=== PATIENT | female | born 1950 | race Caucasian/White ===

== ENCOUNTER → 2016-09-16 | Outpatient (CLI) | payer MEDICARE, OTHER | LOC: CT 09-13 08:30 | DX: M54.2 Cervicalgia (principal); M47.812 Spondylosis without myelopathy or radiculopathy, cervical region; Z98.1 Arthrodesis status | CPT/HCPCS: 72125 ==

== ENCOUNTER 2020-08-24 23:15 | Inpatient (IN) | payer MEDICARE ==
[~2020-08-24] VITALS: Ht 165.1 cm; Wt 97.5 kg
[~2020-08-24 23:15] MED LIST: AMIODARONE HCL200 MG PO; AMIODARONE HCL400 MG PO; ARIMIDEX 1 MG TA1 MG PO; ATORVASTATIN CA40 MG PO; CEFUROXIME250 MG PO; ENTRESTO 97 MG1 EACH PO; LIPITOR TAB 2020 MG PO; ONDANSETRON ODT8 MG PO; PLAVIX 75 MG TA75 MG PO; VERZENIO PO; VITAMIN D325 MC3 PO; ZEBETA 5 MG TAB5 MG PO
[2020-08-25 01:10] LABS: HEMOGLOBIN 11.4 gm/dl (12.3-15.3); RED BLOOD COUNT 3.54 M/UL (4.00-5.10); WHITE BLOOD COUNT 5.5 K/UL (4.5-11.0)
[2020-08-25] MEDS ORDERED: LETROZOLE2.5 MG PO (02:43)
[2020-08-26 12:11] LABS: HEMOGLOBIN 10.8 gm/dl (12.3-15.3); RED BLOOD COUNT 3.32 M/UL (4.00-5.10); WHITE BLOOD COUNT 5.2 K/UL (4.5-11.0)
[2020-08-27 02:56] LABS: HEMOGLOBIN 10.4 gm/dl (12.3-15.3); RED BLOOD COUNT 3.23 M/UL (4.00-5.10); WHITE BLOOD COUNT 4.6 K/UL (4.5-11.0)
[2020-08-28 04:11] LABS: HEMOGLOBIN 10.5 gm/dl (12.3-15.3); RED BLOOD COUNT 3.27 M/UL (4.00-5.10); WHITE BLOOD COUNT 4.8 K/UL (4.5-11.0)
[2020-10-28] MEDS ORDERED: OXYCODONE HCL15 MG PO (09:28)
== END 2020-08-28 10:05 | disposition home or self-care (01) | DRG 683 ==
LOC: ER1 23:15 → M/S 08-25 02:05 → CDU 08-25 02:05 → M/S 08-25 19:21
PROVIDERS: Physician Assistant; ADMIT Internal Medicine
DX: N17.9 Acute kidney failure, unspecified (principal); M62.82 Rhabdomyolysis; I13.0 Hypertensive heart and chronic kidney disease with heart failure and stage 1 through stage 4 chronic kidney disease, or unspecified chronic kidney disease; I50.22 Chronic systolic (congestive) heart failure; C79.51 Secondary malignant neoplasm of bone; I42.8 Other cardiomyopathies; Z20.822 Contact with and (suspected) exposure to COVID-19; N18.30 Chronic kidney disease, stage 3 unspecified; E86.0 Dehydration; C50.919 Malignant neoplasm of unspecified site of unspecified female breast; E66.9 Obesity, unspecified; E83.52 Hypercalcemia; D63.1 Anemia in chronic kidney disease; I44.7 Left bundle-branch block, unspecified; E78.5 Hyperlipidemia, unspecified; K21.9 Gastro-esophageal reflux disease without esophagitis; E03.9 Hypothyroidism, unspecified; F11.90 Opioid use, unspecified, uncomplicated; Z68.30 Body mass index [BMI] 30.0-30.9, adult; Z90.49 Acquired absence of other specified parts of digestive tract; Z90.710 Acquired absence of both cervix and uterus; Z88.5 Allergy status to narcotic agent; Z91.041 Radiographic dye allergy status
CPT/HCPCS: 36415; 71045; 80048; 80053; 81001; 82550; 82553; 84484; 85025; 87086; 93005; 96374; 99285; J1170; J1650; J2270; J2405; J7030; J7040; U0002

== ENCOUNTER 2020-09-30 22:10 | Inpatient (IN) | payer MEDICARE ==
[~2020-09-30] VITALS: Ht 165.1 cm; Wt 98.9 kg
[~2020-09-30 22:10] MED LIST changes: +LETROZOLE2.5 MG PO
[2020-10-01] MEDS ORDERED: LIPITOR TAB 2020 MG PO (09:24)
[2020-10-01] MEDS ORDERED: ZOFRAN ODT 4 MG4 MG PO (09:24)
[2020-10-01 10:22] LABS: HEMOGLOBIN 10.2 gm/dl (12.3-15.3); RED BLOOD COUNT 3.14 M/UL (4.00-5.10); WHITE BLOOD COUNT 4.9 K/UL (4.5-11.0)
[2020-10-02 02:50] LABS: HEMOGLOBIN 9.2 gm/dl (12.3-15.3); RED BLOOD COUNT 2.83 M/UL (4.00-5.10); WHITE BLOOD COUNT 4.5 K/UL (4.5-11.0)
[2020-10-04] MEDS ORDERED: SENNA LAX8.6 MG PO (12:43)
[2020-10-04] MEDS ORDERED: POLYETHYLENE GL17 GM PO (12:43)
[2020-10-04] MEDS ORDERED: DOCUSATE SODIU100 MG PO (12:43)
[2020-10-28] MEDS ORDERED: OXYCODONE HCL15 MG PO (09:28)
== END 2020-10-04 14:30 | disposition home or self-care (01) | DRG 683 ==
LOC: PROG CARE 10-01 08:35
PROVIDERS: Internal Medicine; Physician Assistant Medical; ADMIT Internal Medicine
DX: N17.9 Acute kidney failure, unspecified (principal); I42.9 Cardiomyopathy, unspecified; C78.7 Secondary malignant neoplasm of liver and intrahepatic bile duct; C79.51 Secondary malignant neoplasm of bone; I13.0 Hypertensive heart and chronic kidney disease with heart failure and stage 1 through stage 4 chronic kidney disease, or unspecified chronic kidney disease; I50.22 Chronic systolic (congestive) heart failure; E83.52 Hypercalcemia; N18.30 Chronic kidney disease, stage 3 unspecified; C50.919 Malignant neoplasm of unspecified site of unspecified female breast; Z20.822 Contact with and (suspected) exposure to COVID-19; E66.9 Obesity, unspecified; E78.5 Hyperlipidemia, unspecified; E03.9 Hypothyroidism, unspecified; K21.9 Gastro-esophageal reflux disease without esophagitis; E86.0 Dehydration; G89.4 Chronic pain syndrome; G89.3 Neoplasm related pain (acute) (chronic); Z90.49 Acquired absence of other specified parts of digestive tract; Z90.710 Acquired absence of both cervix and uterus; Z98.890 Other specified postprocedural states; Z88.5 Allergy status to narcotic agent; Z88.8 Allergy status to other drugs, medicaments and biological substances; Z88.4 Allergy status to anesthetic agent; Z82.49 Family history of ischemic heart disease and other diseases of the circulatory system; Z80.0 Family history of malignant neoplasm of digestive organs; Z79.02 Long term (current) use of antithrombotics/antiplatelets; Z79.890 Hormone replacement therapy; Z68.36 Body mass index [BMI] 36.0-36.9, adult
CPT/HCPCS: 36415; 80053; 81001; 82570; 83735; 84133; 84156; 84300; 85025; 85027; 89050; 96372; 96374; 96376; G0378; G0379; J1650; J2060; J2405; J2765; J3489; J7030; U0002

== ENCOUNTER 2020-10-28 12:02 | Inpatient (IN) | payer MEDICARE ==
[~2020-10-28] VITALS: Ht 165.1 cm; Wt 91.6 kg
[~2020-10-28 12:02] MED LIST changes: +DOCUSATE SODIU100 MG PO; +OXYCODONE HCL15 MG PO; +POLYETHYLENE GL17 GM PO; +SENNA LAX8.6 MG PO; +ZOFRAN ODT 4 MG4 MG PO
[2020-10-28 12:34] LABS: HEMOGLOBIN 10.5 gm/dl (12.3-15.3); RED BLOOD COUNT 3.28 M/UL (4.00-5.10)
[2020-10-28 13:14] LABS: WHITE BLOOD COUNT 1.1 K/UL (4.5-11.0)
[2020-10-28] MEDS ORDERED: OXYCODONE HCL E10 MG PO (16:18)
[2020-10-28] MEDS ORDERED: CALCIUM 600 +1 EAC3 PO (16:20)
[2020-10-28] MEDS ORDERED: ATORVASTATIN CA20 MG PO (16:21)
[2020-10-28] MEDS ORDERED: SENNA8.6 MG PO (16:25)
[2020-10-28] MEDS ORDERED: AMIODARONE HCL200 MG PO (16:29)
[2020-10-28] MEDS ORDERED: HYDROCODON-ACE1 EAC6 PO (19:46)
[2020-10-28] MEDS ORDERED: LEVOTHYROXINE200 MC1 PO (22:59)
[2020-10-29 01:12] LABS: HEMOGLOBIN 9.5 gm/dl (12.3-15.3)
[2020-10-29 01:16] LABS: RED BLOOD COUNT 2.91 M/UL (4.00-5.10)
[2020-10-29 01:17] LABS: WHITE BLOOD COUNT 1.2 K/UL (4.5-11.0)
--- NOTE | 2020-10-30 10:04 | NUR ---
[facility] CONTACTED. PT RULED OUT FOR DONATION BY CLINICAL DOCUMENTATION CONSULTANT [place]. NOT A CANDIDATE DUE TO METASTATIC BREAT CANCER. CASE NUMBER FOR REFERENCE [id number]
== END 2020-10-30 09:49 | disposition expired | DRG 393 ==
LOC: ER1 12:02 → CDU 15:29 → M/S 17:10
PROVIDERS: Family Medicine; ADMIT Internal Medicine Infectious Disease
DX: K52.1 Toxic gastroenteritis and colitis (principal); K72.00 Acute and subacute hepatic failure without coma; N17.0 Acute kidney failure with tubular necrosis; C79.51 Secondary malignant neoplasm of bone; C78.7 Secondary malignant neoplasm of liver and intrahepatic bile duct; N17.9 Acute kidney failure, unspecified; D68.4 Acquired coagulation factor deficiency; D61.818 Other pancytopenia; I13.0 Hypertensive heart and chronic kidney disease with heart failure and stage 1 through stage 4 chronic kidney disease, or unspecified chronic kidney disease; I50.22 Chronic systolic (congestive) heart failure; I47.1 Supraventricular tachycardia; J98.11 Atelectasis; R18.8 Other ascites; K52.0 Gastroenteritis and colitis due to radiation; E87.2 Acidosis; Z51.5 Encounter for palliative care; Z66 Do not resuscitate; Z20.822 Contact with and (suspected) exposure to COVID-19; E86.0 Dehydration; T45.1X5A Adverse effect of antineoplastic and immunosuppressive drugs, initial encounter; K52.89 Other specified noninfective gastroenteritis and colitis; C50.919 Malignant neoplasm of unspecified site of unspecified female breast; E80.6 Other disorders of bilirubin metabolism; I12.9 Hypertensive chronic kidney disease with stage 1 through stage 4 chronic kidney disease, or unspecified chronic kidney disease; N18.30 Chronic kidney disease, stage 3 unspecified; E87.5 Hyperkalemia; E03.9 Hypothyroidism, unspecified; Z90.49 Acquired absence of other specified parts of digestive tract; Z82.49 Family history of ischemic heart disease and other diseases of the circulatory system; Z79.899 Other long term (current) drug therapy; Z80.0 Family history of malignant neoplasm of digestive organs; Z88.6 Allergy status to analgesic agent; Z88.5 Allergy status to narcotic agent; Z88.8 Allergy status to other drugs, medicaments and biological substances; Z79.01 Long term (current) use of anticoagulants
CPT/HCPCS: 36415; 36430; 71045; 80053; 82040; 82140; 82550; 82553; 83605; 83690; 83874; 84132; 84484; 85025; 85610; 86900; 86901; 87040; 93005; 96374; 96375; 99285; C9113; J0456; J0610; J0696; J2060; J2270; J2405; J3430; J7030; J7070; P9037; U0002